=== PATIENT | female | born 2000 | race Caucasian/White ===

== ENCOUNTER 2021-10-03 22:46 | Emergency (ER) | payer MEDICAID ==
[2021-10-03 23:10] VITALS: BP 123/79
[2021-10-03] MEDS ORDERED: RX-CEPHALEXIN (KEFLEX) 250 MG CAP PPK#4 PO STA (23:30)
[2021-10-03] MEDS ORDERED: CIPR2.5D3 OP (23:33)
[2021-10-03] MEDS ORDERED: CEPH500T PO (23:33)
--- NOTE | 2021-10-03 23:33 | ED EENT ---
History of Present Illness General Chief Complaint: Eye Problems Stated Complaint: RIGHT EYE SWOLLEN Nursing Triage Note: PT PRESENTS WITH C/O RIGHT EYE SWELLING AND PAIN. DENIES INJURY. REPORTS HAS BEEN USING OTC EYE DROP FOR IRRITATION THAT HAVE NOT HELPED. DENIES DRAINAGE OR TEARING. REPORTS EYE BEGAN TO HURT 5 DAYS AGO AND SWELLING BEGAN 3 DAYS AGO Source: patient History of Present Illness Date Seen by Provider: Oct 03, 2021 Time Seen by Provider: 23:20 Initial Comments PT ARRIVES VIA POV FROM HOME C/O PAIN X 5 DAYS AND SWELLING TO RIGHT UPPER/OUTER EYELID FOR THE LAST 3 DAYS NO DRAINAGE NO VISION CHANGES NO FEVER NO URI SYMPTOMS NO HEADACHE PT HAS HAD STYES IN THE PAST, BUT NEVER THIS BAD HAS NOT TAKEN ANYTHING FOR PAIN AT ANY TIME HAS NOT SOUGHT CARE UNTIL TONIGHT SYMPTOMS NO DIFFERENT TONIGHT PT IS 6 WEEKS AND HAD HER FIRST OB APPOINTMENT YESTERDAY WITH DR. TRUJILLO. DID NOT MENTION THIS PROBLEM TO HIM. PCP: NONE--JUST MOVED TO [facility] THIS MONTH FROM [place] Allergies and Home Medications Allergies Coded Allergies: No Known Drug Allergies (Unverified , 10/03/21) Patient Home Medication List Home Medication List Reviewed: Yes Cephalexin (Cephalexin) 500 Mg Tablet, 500 MG PO QID Prescribed by: MARVA HOPPER on 10/03/212332 Ciprofloxacin HCl (Ciprofloxacin HCl) 0.3 % Drops, 2.5 ML OP QID Prescribed by: MARVA HOPPER on 10/03/212332 Review of Systems Review of Systems Constitutional: no symptoms reported Eyes: See HPI Nose: no symptoms reported Expected Date of Delivery: May 23, 2022 Neurological: No Symptoms Reported; Denies Headache Past Worrizo-Wogyjj-Zzabxn Hx Patient Social History Tobacco Use?: Yes Tobacco type used: Cigarettes Smoking Status: Current Everyday Smoker Substance use?: No Alcohol Use?: No Pt feels they are or have been: No Immunizations Up To Date Influenza Vaccine Up-to-Date: No; Not Current Past Medical History Surgeries: No Respiratory: No Cardiac: No Neurological: No : Yes Expected Date of Delivery: May 23, 2022 Genitourinary: No Gastrointestinal: No Musculoskeletal: No Endocrine: No HEENT: Yes (STYES) Cancer: No Psychosocial: No Integumentary: No Blood Disorders: No Physical Exam Vital Signs Vital Signs - First Documented 10/03/21 23:10 Temp 36.8 Pulse 61 Resp 18 B/P (MAP) 123/79 (94) Pulse Ox 100 O2 Delivery Room Air Height, Weight, BMI Height: '" Weight: lbs. oz. kg; BMI Method: General Appearance: WD/WN, no apparent distress, other (REEKS OF CIGARETTES) Eyes: right eye other (RIGHT UPPER EYELID/ OUTER ASPECT WITH STYE AND MILD SWELLING TO THE AREA. NO DRAINAGE. CONJUNCTIVA CLEAR. NO PAIN WITH MOVEMENT OF EYE. 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 Decision time for Depature: 23:31 Referrals: [facility] Patient Instructions: [place] (DC) Add. Discharge Instructions: TYLENOL NEEDED FOR PAIN WARM COMPRESSES TO THE AREA AT 20 MINUTE INTERVALS DO NOT POKE, PICK AT, OR SQUEEZE THE AREA FOLLOW UP WITH [facility] IN 4-5 DAYS IF NO BETTER All discharge instructions reviewed with patient and/or family. Voiced understanding. Scripts Ciprofloxacin HCl (Ciprofloxacin HCl) 0.3 % Drops 2.5 ML OP QID, #1 EA Prov: MARVA HOPPER DO 10/03/21 Cephalexin (Cephalexin) 500 Mg Tablet 500 MG PO QID, #30 TAB 0 Refills Prov: MARVA HOPPER DO 10/03/21 MARVA HOPPER DO Oct 03, 2021 23:33
== END 2021-10-03 23:39 | disposition home or self-care (01) ==
LOC: EDUNIT# 22:46 → ER 22:49
DX: O99.891 Other specified diseases and conditions complicating pregnancy (principal); H00.011 Hordeolum externum right upper eyelid; F17.210 Nicotine dependence, cigarettes, uncomplicated; Z28.310 Unvaccinated for COVID-19; Z3A.01 Less than 8 weeks gestation of pregnancy
CPT/HCPCS: 99283